=== PATIENT | female | born 1980 | race African-American/Black ===

== ENCOUNTER 2017-09-22 07:07 | Day surgery (SDC) | payer MEDICAID ==
[~2017-09-22 07:07] MED LIST: LACTATED RINGERS 1000 ML IV PRN; LIDOCAINE 0.5% INJ-PF (5 MG/ML) 50 ML SDV SUBCUT PRN; LIDOCAINE 1%/EPINEPHRINE INJ 20 ML VIAL ONE; LIDOCAINE 2% JELLY 30 ML TUBE ONE; METRONIDAZOLE 500 MG/NS RTU 100 ML IV PRN; MIDAZOLAM 2 MG/2 ML INJ IV PRN
[2017-09-22] MEDS ORDERED: FAMOTIDINE INJ/PF 20 MG/2 ML SDV IV ONE (08:07)
[2017-09-22] MEDS ORDERED: CITRIC ACID/SODIUM CITRATE ORAL SOLN 15 ML UDCUP ONE (08:07)
[2017-09-22] MEDS ORDERED: METOCLOPRAMIDE HCL INJ/PF 10 MG/2 ML SDV ONE (08:10)
[2017-09-22] MEDS ORDERED: MIDAZOLAM 2 MG/2 ML INJ ONE (08:34)
[2017-09-22] MEDS ORDERED: FENTANYL CITRATE INJ/PF 100 MCG/2 ML AMPUL ONE (08:34)
[2017-09-22] MEDS ORDERED: PROPOFOL INJ 200 MG/20 ML VIAL IV ONE (08:35)
[2017-09-22] MEDS ORDERED: DEXAMETHASONE SOD PHOSPHATE INJ 4 MG/1 ML VIAL ONE (08:35)
[2017-09-22] MEDS ORDERED: HYDROMORPHONE HCL INJ/PF 2 MG/ML AMPULE ONE (08:35)
[2017-09-22] MEDS ORDERED: ONDANSETRON HCL INJ/PF 4 MG/2 ML SDV ONE (08:35)
[2017-09-22] MEDS ORDERED: PROMETHAZINE HCL INJ 25 MG/1 ML VIAL IV PRN (09:05)
[2017-09-22] MEDS ORDERED: FENTANYL CITRATE INJ/PF 100 MCG/2 ML AMPUL IV PRN ×3 (09:05)
[2017-09-22] MEDS ORDERED: DIPHENHYDRAMINE HCL 50 MG/ML VIAL IV PRN (09:05)
[2017-09-22] MEDS ORDERED: MEPERIDINE HCL/PF INJ 25 MG/1 ML DISP.SYRIN IV PRN (09:05)
--- NOTE | 2017-09-22 09:26 | PDOC DISCHARGE SUMMARY ---
Discharge Summary (SDC) - Discharge Final Diagnosis: Anterior hemorrhoid Date of Surgery: 09/22/17 Discharge Date: 09/22/17 Condition: Good Treatment or Instructions: [facility] [address] [place] [id number] Hemorrhoid or Anal Surgery Discharge Instructions 1. General Information: a. DO NOT DRIVE a car or operate dangerous machinery for 4-7 days or while taking narcotic prescription pain pills. b. DO NOT consume alcohol, tranquilizers, sleeping medications or any non- prescribed medications for 24 hours unless approved by your doctor or as long as taking narcotic prescription medications. c. DO NOT make important decisions or sign any important papers for the next 24 hours. d. Have a responsible person with you tonight. 2. Activity Restrictions: 1 week a. Avoid heavy lifting or straining until you feel more comfortable. b. It is fine to go for walks, up and down steps, ride in a car. 3. Treatment: a. Tomorrow morning begin warm water sitz baths (soaks) with plain water. You may do 3-4 times per day or after bowel movements to help relieve spasm and pain. Place a dry gauze or panty liner over the sight to catch drainage and blood to help keep your clothing dry. b. You may use Tucks or other medicated wipes to help clean the area as needed. c. If packing used it will pass spontaneously with bowel function. External dressings and medicated gauze should be removed before sitz baths. 4. Medications: You may switch to plain Tylenol, Advil or Aleve as you transition from the narcotic. Many adults find good pain relief with Advil 600-800 mg three times a day with meals for short courses. This can cause indigestion, ulcers, and kidney problems with long-term use. c. Resume all normal medications unless a change is specified by your doctors. d. Stool softeners are encouraged to help you for 2-4 weeks to maintain a soft stool and avoid more painful bowel movements due to pain medication. Colace is often used. e. A numbing cream may be prescribed, this can be applied after sitz baths around the perianal area before the sight is covered with a gauze pad. f. Constipation is very common after anal surgery and you may take over-the- counter medications to help stimulate the bowel such as Milk of Magnesia, Senokot tablets, prune juice and drink plenty of water. 5. Diet: a. Begin with clear liquids and if you do well you may then advance to normal foods low in fat and protein at first. Smaller portion size may be colón the first night. b. Acidic (orange juice, tomato), foods high in ruffage (grapes, celery, asparagus) and spicy foods should be avoided for comfort the first 2-3 weeks since they can cause more burning sensation with bowel movements. 6..Follow Up Care: a. Please call the office to schedule a follow up appointment with your doctor for 2 weeks. In the event of any postoperative problems or questions or you may call the office during business hours or the On-Call physician evenings and weekends at [facility]. [facility] I understand the instructions for my postoperative care as described above and a copy has been given to me. Patient/Significant Other Witness Date Prescriptions: Ketorolac Tromethamine [Toradol 10 mg Tablet] 10 mg PO Q8HP PRN #14 tablet PRN Reason: Referrals: LAURA ARANGO MD [Primary Care Provider] - Discharge Diet: As Tolerated Discharge Activity: Activity As Tolerated Home Care Assistance: None Needed Report the Following to Your Physician Immediately: Shortness of Breath, Increase in Pain, Fever over 101 Degrees
--- NOTE | 2017-09-22 09:30 | Operative Report ---
Operative Report DATE OF SURGERY: 09/22/17 PREOPERATIVE DIAGNOSIS: Anterior skin tag versus hemorrhoid POSTOPERATIVE DIAGNOSIS: Symptomatic anterior hemorrhoid; additional thrombosed hemorrhoids OPERATION: 1. Examination under anesthesia. 2. Single anterior hemorrhoidectomy with primary closure SURGEON: YUNG PABLO ANESTHESIA: GA TISSUE REMOVED OR ALTERED: 1 anterior hemorrhoid to pathology COMPLICATIONS: None ESTIMATED BLOOD LOSS: Scant INTRAOPERATIVE FINDINGS: See below PROCEDURE: Patient was taken to the main operating room and general anesthesia was induced. She was then placed in the prone jackknife position. Buttocks spread taped widely prepped and draped sterile fashion Surgical plan surgical timeout were conducted. Findings were significant for the external anterior skin tag versus hemorrhoid. The perineum was otherwise unremarkable. The anal was narrow but not tight. I was able to introduce 2 fingers without difficulty. The perianal tissue was significant for several collapsed hemorrhoids in the posterior and posterior lateral right position. There was no evidence of abscess, cellulitis, renal masses; further more no evidence of anal fissure. The pathology of concern to the patient strictly in the anterior angle position. We placed a small Lema retractor into position, numbed up the ureter hemorrhoid with 1% lidocaine with epinephrine. A 4-0 chromic suture was placed at the apex of the hemorrhoid at approximately the dentate line. The hemorrhoid was excised with 15 blade, Metzenbaum scissors. The hemorrhoid was not thrombosed. The level of dissection taken down to the internal anal sphincter. Specimen was sent off to pathology. The wound closed with a running continuous locking chromic suture. Hemostasis was excellent. We felt the operation was complete. Sponge and counts were correct. Additional lidocaine was injected at the operative site and 4 x 4 applied. Patient tolerated the procedure well, extubated, taken recovery in stable condition.
[2017-09-22 11:59] VITALS: BP 115/74
== END 2017-09-22 11:45 | disposition home or self-care (01) ==
LOC: OROUT 07:07
PROVIDERS: ATTEND Surgery
PROC: 06BY0ZC Excision of Hemorrhoidal Plexus, Open Approach (ICD-10-PCS; principal; 2017-09-22 08:45)
DX: K64.5 Perianal venous thrombosis (principal)
CPT/HCPCS: 46320; 81025; 88304 ×2; J2250; J1100; J3010; J3490 ×2; J2765; J1170; J2405; J2704; S0028; 300

== ENCOUNTER 2020-02-05 20:02 | Emergency (ER) | payer MEDICAID ==
[2020-02-05 20:57] VITALS: BP 125/76
[2020-02-05] MEDS ORDERED: CEFTRIAXONE INJ 1000 MG VIAL IM ONE (21:43)
--- NOTE | 2020-02-05 21:49 | ER Document Report ---
HPI - HPI Patient complains to provider of: Insect Bite Time Seen by Provider: 02/05/20 21:35 Pain Level: 2 Context: 39-year-old female with no previous medical problems presents to the emergency room complaining of a bug bite to her right upper thigh that she noticed 2 days ago. States she has a history of multiple brown recluse spider bites. Patient states in the past she has always gotten an injection of an antibiotic and sent home on oral antibiotics. States only 1 time she had to have it lanced open she denies any fevers. No discharge or draining. Been using hot baths with [id number] Neosporin ointment with minimal relief. States her tetanus is up-to-date. Denies . Associated Symptoms: None Exacerbated by: Walking Relieved by: Remaining still Similar symptoms previously: Yes Recently seen / treated by doctor: No - ROS Systems Reviewed and Negative: Yes All other systems reviewed and negative - CONSTITUTIONAL Constitutional: DENIES: Fever, Chills - NEURO Neurology: DENIES: Headache, Weakness - GASTROINTESTINAL Gastrointestinal: DENIES: Nausea - REPRODUCTIVE Reproductive: DENIES: : - MUSCULOSKELETAL Musculoskeletal: REPORTS: Extremity pain - DERM Skin Color: Erythema Past Medical History - General Information source: Patient - Social History Smoking Status: Current Every Day Smoker Chew tobacco use (# tins/day): No Frequency of alcohol use: Occasional Drug Abuse: None Family History: Reviewed & Not Pertinent - Medical History Medical History: Negative - Past Medical History Cardiac Medical History: Denies: Hx Coronary Artery Disease, Hx Heart Attack, Hx Hypertension Pulmonary Medical History: Denies: Hx Asthma, Hx Bronchitis, Hx COPD, Hx Pneumonia Neurological Medical History: Denies: Hx Cerebrovascular Accident, Hx Seizures Musculoskeletal Medical History: Denies Hx Arthritis - Immunizations Hx Diphtheria, Pertussis, Tetanus Vaccination: Yes Vertical Provider Document - CONSTITUTIONAL Agree With Documented VS: Yes Exam Limitations: No Limitations General Appearance: Mild Distress - INFECTION CONTROL TRAVEL OUTSIDE OF THE [place] IN LAST 30 DAYS: No - HEENT HEENT: Atraumatic, Normocephalic - NECK Neck: Normal Inspection, Supple - RESPIRATORY Respiratory: Breath Sounds Normal, No Respiratory Distress - CARDIOVASCULAR Cardiovascular: Regular Rate, Regular Rhythm, No Murmur - MUSCULOSKELETAL/EXTREMETIES Musculoskeletal/Extremeties: FROM, Tender - Right upper lateral thigh with erythema, it is warm and tender to palpation. There is no active discharge or draining noted., No Edema - NEURO Level of Consciousness: Awake, Alert, Appropriate Motor/Sensory: No Motor Deficit, No Sensory Deficit - DERM Integumentary: Warm, Dry, No Rash, Abscess - There is a 2 cm nonfluctuant abscess with erythema noted. It is warm and tender to palpation but no active discharge or draining noted. Course - Re-evaluation Re-evalutation: 02/05/20 20:50 Patient was counseled to continue with warm compresses 20 minutes 3 times a day. Was given IM Rocephin in the emergency room. Discharged home on p.o. Keflex. Tylenol and/or Motrin as needed for pain. Also need to follow-up outpatient with her primary care physician for recheck in 2 days. Patient was given strict return to the emergency room guidelines. Return for any new or worsening symptoms. All questions were answered. Patient verbalized understanding and agrees with plan of care. - Vital Signs Vital signs: Temp Pulse Resp BP Pulse Ox 99.0 F 70 16 125/76 98 02/05/20 21:34 02/05/20 20:56 02/05/20 20:56 02/05/20 20:56 02/05/20 20:56 Discharge - Discharge Clinical Impression: Cellulitis of right thigh Insect bite Qualifiers: Encounter type: initial encounter Site of insect bite: thigh Laterality: right Qualified Code(s): S70.361A - Insect bite (nonvenomous), right thigh, initial encounter Condition: Stable Disposition: HOME, SELF-CARE Instructions: Cellulitis ([facility]), Insect Bites ([facility]) Additional Instructions: The erythema is likely due to infection of your skin. You need to take the antibiotics as prescribed. Do not stop even if the erythema goes away until you have completed all the antibiotics. Compresses 20 minutes 3 times a day. You should also return if you develop fevers with temperature greater than 101, persistent vomiting, worsening pain, or have any other symptoms that are concerning to you. Follow-up with your doctor in the next 24-48 hours. Prescriptions: Cephalexin Monohydrate [Keflex 500 mg Capsule] 500 mg PO Q6H 10 Days #40 capsule Referrals: BERTHA HUIZAR MD [COMMUNITY BASED STAFF] - Follow up as needed
[2020-02-05] MEDS ORDERED: LIDOCAINE 1% INJ-PF (10 MG/ML) 30 ML SDV ONE (22:05)
== END 2020-02-05 22:00 | disposition home or self-care (01) ==
LOC: ER 20:02
DX: S70.361A Insect bite (nonvenomous), right thigh, initial encounter (principal); L03.115 Cellulitis of right lower limb; W57.XXXA Bitten or stung by nonvenomous insect and other nonvenomous arthropods, initial encounter; F17.200 Nicotine dependence, unspecified, uncomplicated
CPT/HCPCS: 99281; 96372; J0696

== ENCOUNTER 2020-06-26 22:09 | Emergency (ER) | payer MEDICAID ==
--- NOTE | 2020-06-27 01:29 | ER Document Report ---
ED Medical Screen (RME) - General Chief Complaint: Skin Problem Stated Complaint: POSSIBLE SPIDER BITES TO KNECK LEG AND BUTTOX Time Seen by Provider: 06/27/20 01:22 Mode of Arrival: Ambulatory Information source: Patient Notes: HPI; 40-year-old female presents to the emergency room with concerns for 3 questionable brown recluse spider bites. States she has one on her right buttock, one on her right calf, and one on the right side of her neck. Noticed them 2 days ago. States the one on her but is getting progressively worse and is painful difficulty sit. States is difficulty to weight after bowel movements. She denies any fevers. No discharge or draining from the areas. Taking ibuprofen with minimal relief. PE: Alert and oriented x3. Lungs: Clear to auscultation without rales, rhonchi, wheezes. Heart: Regular rate rhythm without murmurs, rubs, gallops. I have greeted and performed a rapid initial assessment of this patient. A comprehensive ED assessment and evaluation of the patient, analysis of test results and completion of the medical decision making process will be conducted by additional ED providers. I have specifically instructed the patient or family members with the patient to immediately return to any nursing staff should anything change in the patient's condition or with their chief complaint. TRAVEL OUTSIDE OF THE [place] IN LAST 30 DAYS: No - Related Data Allergies/Adverse Reactions: shellfish derived Allergy (Severe, Verified 09/15/17 09:29) Edema Past Medical History - Past Medical History Cardiac Medical History: Denies: Hx Coronary Artery Disease, Hx Heart Attack, Hx Hypertension Pulmonary Medical History: Denies: Hx Asthma, Hx Bronchitis, Hx COPD, Hx Pneumonia Neurological Medical History: Denies: Hx Cerebrovascular Accident, Hx Seizures Musculoskeltal Medical History: Denies Hx Arthritis - Immunizations Hx Diphtheria, Pertussis, Tetanus Vaccination: Yes Physical Exam - Vital signs Vitals: Temp Pulse Resp BP Pulse Ox 98.4 F 65 16 116/76 100 06/26/20 22:55 06/26/20 22:55 06/26/20 22:55 06/26/20 22:55 06/26/20 22:55 Course - Vital Signs Vital signs: Temp Pulse Resp BP Pulse Ox 98.4 F 65 16 116/76 100 06/26/20 22:55 06/26/20 22:55 06/26/20 22:55 06/26/20 22:55 06/26/20 22:55
--- NOTE | 2020-06-27 05:56 | ER Document Report ---
ED General - General Chief Complaint: Insect Bite Stated Complaint: POSSIBLE SPIDER BITES TO NECK LEG AND BUTTOX Time Seen by Provider: 06/27/20 01:22 Mode of Arrival: Ambulatory Information source: Patient Notes: 40-year-old -[place] female coming in today with "spider bites". Patient notes a small macule on her neck and reports also similar lesion on the right calf. Also says there is one similar to that on the right buttock but she is unwilling to show this one to us. No fevers or chills. Requesting cephalexin has worked in the past TRAVEL OUTSIDE OF THE [place] IN LAST 30 DAYS: No - Related Data Allergies/Adverse Reactions: shellfish derived Allergy (Severe, Verified 06/27/20 01:30) Edema Past Medical History - General Information source: Patient - Social History Smoking Status: Unknown if Ever Smoked Family History: Reviewed & Not Pertinent Patient has homicidal ideation: No - Past Medical History Cardiac Medical History: Denies: Hx Coronary Artery Disease, Hx Heart Attack, Hx Hypertension Pulmonary Medical History: Denies: Hx Asthma, Hx Bronchitis, Hx COPD, Hx Pneumonia Neurological Medical History: Denies: Hx Cerebrovascular Accident, Hx Seizures Musculoskeletal Medical History: Denies Hx Arthritis - Immunizations Hx Diphtheria, Pertussis, Tetanus Vaccination: Yes Review of Systems - Review of Systems Notes: Constitutional: No fevers. No chills. EENT: No eye redness. No eye pain. No ear pain. No sore throat. Cardiovascular: No chest pain. No palpitations. Respiratory: No cough. No shortness of breath. No respiratory distress. Gastrointestinal: No abdominal pain. No nausea, vomiting, or diarrhea. Genitourinary: Atraumatic. No lesions. No pain. No discharge. Musculoskeletal: Atraumatic. No swelling. No deformities. Skin: Positive insect bite Lymphatic: No swollen lymph nodes. Neurologic: No headache. No syncope. Psychiatric: No suicidal or homicidal ideation. Physical Exam - Vital signs Vitals: Temp Pulse Resp BP Pulse Ox 98.4 F 65 16 116/76 100 06/26/20 22:55 06/26/20 22:55 06/26/20 22:55 06/26/20 22:55 06/26/20 22:55 - Notes Notes: General: Well-developed, well-nourished. In no acute distress. Non-toxic appearing. Cardiac: Well-perfused. Regular rate and rhythm. No murmurs, rubs, or gallops. Pulmonary: No respiratory distress. No cyanosis. Bilateral lung fiels are clear to auscultation. Abdominal: Non-distended. Non-rigid. Bowels sounds are present in all four quadrants. No guarding or rebound. HEENT: Head is atraumatic. Conjunctivae not reddened. No tearing. PERRL. EOMI. Orbits atraumatic. No periorbital swelling or erythema. Oropharynx is without erythema, swelling, or exudates. Neck: Supple. No adenopathy. No meningismus. Dermatologic: Red macule to the right upper chest wall, red macule to right calf Chest: Atraumatic. No chest wall tenderness to palpation. Musculoskeletal: Moves all extremities well. No range of motion deficits. no muscular or joint tenderness. No paraspinal muscle tenderness. no midline spinal tenderness or step-off. Genitourinary: Examination deferred Neurologic: No gross neurologic deficits. Psychiatric: Normal mood. Course - Vital Signs Vital signs: Temp Pulse Resp BP Pulse Ox 98.4 F 65 16 116/76 100 06/26/20 22:55 06/26/20 22:55 06/26/20 22:55 06/26/20 22:55 06/26/20 22:55 Discharge - Discharge Clinical Impression: Insect bites Qualifiers: Encounter type: initial encounter Site of insect bite: unspecified site Qualified Code(s): W57.XXXA - Bitten or stung by nonvenomous insect and other nonvenomous arthropods, initial encounter Condition: Good Disposition: HOME, SELF-CARE Instructions: Insect Bites ([facility]) Prescriptions: Cephalexin Monohydrate [Keflex 500 mg Capsule] 500 mg PO Q6H 10 Days #40 capsule
[2020-06-27 06:13] VITALS: BP 118/73
== END 2020-06-27 06:05 | disposition home or self-care (01) ==
LOC: ER 22:09
DX: S10.96XA Insect bite of unspecified part of neck, initial encounter (principal); S80.861A Insect bite (nonvenomous), right lower leg, initial encounter; W57.XXXA Bitten or stung by nonvenomous insect and other nonvenomous arthropods, initial encounter; Z91.013 Allergy to seafood
CPT/HCPCS: 99283